=== PATIENT | male | born 1980 | race Caucasian/White ===

== ENCOUNTER 2021-02-19 06:05 | Day surgery (SDC) | payer OTHER, MEDICAID, SELFPAY ==
[~2021-02-19] VITALS: Ht 180.3 cm; Wt 102.1 kg
[2021-02-19] MEDS ORDERED: CEFAZOLIN SOD 1 GM in D5W 50 ML IV ONE (07:15)
[2021-02-19] MEDS ORDERED: BUPIVACAINE /PF 0.25% 30 ML VIAL INJ ONE (07:31)
[2021-02-19] MEDS ORDERED: NS IRRIG SOLN 1000 ML IR ONE (07:31)
[2021-02-19] MEDS ORDERED: MIDAZOLAM HCL 5 MG/5 ML VIAL IVP ONE (07:31)
[2021-02-19] MEDS ORDERED: fentaNYL CITRATE 250 MCG/5 ML AMP IV ONE (07:31)
[2021-02-19] MEDS ORDERED: SUGAMMADEX SODIUM 200 MG/2 ML VIAL IV ONE (07:31)
[2021-02-19] MEDS ORDERED: DESFLURANE 15 MIN GAS INH ONE (07:31)
[2021-02-19] MEDS ORDERED: KETOROLAC TROMETHAMINE 30 MG VIAL IVP ONE (07:31)
[2021-02-19] MEDS ORDERED: DEXAMETHASONE SOD PHOSPHATE 4 MG/ML VIAL IVP ONE (07:31)
[2021-02-19] MEDS ORDERED: ROCURONIUM BROMIDE 10 MG/ML (ZEMURON) IV ONE (07:31)
[2021-02-19] MEDS ORDERED: NS 1000 ML IV.SOLN IV ONE (07:31)
[2021-02-19] MEDS ORDERED: LR 1,000 ML IV.SOLN IV ONE (07:31)
[2021-02-19] MEDS ORDERED: ONDANSETRON HCL 4 MG/2 ML VIAL IVP ONE (07:31)
[2021-02-19] MEDS ORDERED: LIDOCAINE 2%, 20 ML MDV INJ ONE (07:31)
[2021-02-19] MEDS ORDERED: MEPERIDINE HCL/PF 25 MG/ML DISP.SYRIN IVP PRN (07:45)
[2021-02-19] MEDS ORDERED: HYDROmorphone 1 MG/ML INJ. CARTRIDGE IVP PRN ×3 (07:45→09:00)
[2021-02-19] MEDS ORDERED: MIDAZOLAM HCL 2 MG/2 ML VIAL (VERSED) IVP PRN (07:45)
[2021-02-19] MEDS ORDERED: LR 1,000 ML IV SCH (07:45)
[2021-02-19] MEDS ORDERED: METOCLOPRAMIDE HCL 10 MG/2 ML VIAL IVP PRN (07:45)
[2021-02-19] MEDS ORDERED: D5/0.45 NS 1,000 ML IV SCH (09:00)
[2021-02-19] MEDS ORDERED: HYDROcodone/ACETAMIN 5-325 MG TAB (NORCO/ VICODIN) PO PRN ×2 (09:00)
[2021-02-19] MEDS ORDERED: HYDROmorphone 1 MG/ML INJ. CARTRIDGE IVP ONE ×2 (09:10→09:15)
[2021-02-19] MEDS ORDERED: HYDROmorphone 1 MG/ML INJ. CARTRIDGE ONE ×2 (09:11→09:29)
[2021-02-19] MEDS ORDERED: METOCLOPRAMIDE HCL 10 MG/2 ML VIAL ONE (11:06)
[2021-02-19 13:40] VITALS: BP_SYST 119
== END 2021-02-19 11:30 | disposition home or self-care (01) ==
LOC: SDS 06:05 → SMU 06:08 → SDS 11:30
PROVIDERS: ATTEND Colon & Rectal Surgery
DX: K80.10 Calculus of gallbladder with chronic cholecystitis without obstruction (principal); Z79.899 Other long term (current) drug therapy; Z20.822 Contact with and (suspected) exposure to COVID-19
CPT/HCPCS: 36415; 47563; 74300; 87426; 88304; C1727; C1758; C9399; J0690; J1100; J1170; J1885; J2001; J2250; J2405; J2765; J3010; J3490; J7030; J7060; J7120; Q9967; U0003; 76000